=== PATIENT | male | born 1955 | race Caucasian/White ===

== ENCOUNTER 2022-08-14 09:26 | Outpatient (CLI) | payer MEDICARE, OTHER, SELFPAY ==
[2022-08-14 10:35] LABS: Anion Gap 5 mmol/L (8-16); Blood Urea Nitrogen 34 mg/dL (9-20); Calcium 9.1 mg/dL (8.4-10.2); Carbon Dioxide 30 mmol/L (22-30); Chloride 101 mmol/L (98-107); Estimated Glomerular Filt Rate 55; Glucose 117 mg/dL (65-110); Potassium 3.8 mmol/L (3.4-5.0); Sodium 136 mmol/L (137-145)
== END 2022-08-14 09:27 | disposition home or self-care (01) ==
PROVIDERS: Anesthesiology; PCP Nurse Practitioner Family; Visit Provider Urology
DX: Z01.818 Encounter for other preprocedural examination (principal); I10 Essential (primary) hypertension
CPT/HCPCS: 36415; 80048

== ENCOUNTER 2022-08-20 01:38 | Day surgery (SDC) | payer MEDICARE, OTHER, SELFPAY ==
--- NOTE | 2022-08-09 14:36 | PC.NURSE ---
Report to the Outpatient Waiting Room, entrance under the green pavilion located off [facility], at time _0600 on date _08/20/22 . Planned Procedure Time: 729 . Time changes happen often and if your time is changed the preop area will call you the afternoon before. - You and your visitor will be asked to self-screen and do not enter if you have any COVID symptoms. - Only one visitor is requested with a max of two and NO children visitors are allowed at this time. - The patient visitor may be requested to leave or wait in car when not with patient due to distancing restrictions. - A mask is optional within the hospital at this time. Patients may have clear liquids (water, carbonated beverages, clear teas, apple juice) until 3 hours prior to surgery with a maximum of 20 ounces. - No food from midnight until time of surgery - Infants may have breast milk until 4 hours before surgery, infant formula 6 hours prior to surgery. - Children will be allowed to drink immediately following surgery. If applicable, please bring a bottle or sippy cup to assist with drinking. Juice, water, soda, and popsicles are readily available. For infants on formula, please bring formula the day of surgery. Pacifiers are allowed. Take the following medications with a SIP of water the morning of surgery: _AMLODIPINE,HYDRALAZINE,LEVOTHYROXINE DO NOT STOP ANY OF YOUR OTHER PRESCRIPTION MEDICATIONS PRIOR TO SURGERY ?EXCEPT THE FOLLOWING Medications to discontinue per physician NONE Date to take last dose Please no make-up, nail [place], hairspray, perfume, deodorant, or body powder the day of surgery. No jewelry (including any body piercings) or valuables the day of surgery, leave them at home. Please take a shower or bath the night before, or the morning of, surgery with an antibacterial soap. Wear comfortable, loose fitting clothing. Children are encouraged to wear pajamas. - Jewelry must be removed prior to entering the operating room. Rings and piercings that are not removed may be cut off. - The hospital will not accept responsibility for valuables. - Please leave all valuables, including medications, at home the day of surgery. If you are going home after surgery, a licensed stock driver must drive you home. - NO public transportation without another adult if you receive anesthesia. - We recommend that an adult stay with you for 24 hours following discharge. - We also recommend that you do not drive, make important decision, drink alcoholic beverages, or take any drugs that were not prescribed by your health care provider for at least 24 hours after your discharge time. For Pediatric surgeries, we recommend two adults accompany the child home. Follow any additional instructions given to you from your surgeon. If you or anyone in your household have experienced Covid symptoms in the past week, please notify your surgeon or the nurse liaison at the phone number below for possible testing. Telephone instructions given to __PATIENT and asked if any additional questions and then verbalized understanding. Patient advised to call surgeon office or pre surgery nurse liaison [phone] if any additional questions.
[2022-08-09 14:48] VITALS: BMI 29.2
[2022-08-20] VITALS (8 sets, daily range): BP systolic 83–137; BP diastolic 47–72; PULSE 70–86; RESP 12–17; TEMP 36.3–36.4; O2SAT 100
[2022-08-20] MEDS: LACTATED RINGERS 1,000 ML 30 ML IV CONT ×2 (06:30→08:26)
--- NOTE | 2022-08-20 07:12 | P.PNAN_ITS ---
Anes - Initial Pre Proc Eval Procedure: Operation Date: 08/20/22 07:30 Proposed Procedures p Right Hydrocelectomy with Orchiopexy - Alexander Ocasio MD Date/Time: 08/20/22 07:12 Surgeon: Alexander Ocasio MD Pre Op Diagnosis: Right Hydrocele Patient Data Age: 67 Gender: M Height: 1.8 m Weight: 89.5 kg Last Vital Signs Temp 36.3 C L 08/20/22 06:58 Pulse 71 08/20/22 06:58 Resp 16 08/20/22 06:58 BP 120/66 08/20/22 06:58 Pulse Ox 100 08/20/22 06:58 O2 Del Method Room Air 08/20/22 06:58 Allergies Allergy/AdvReac Type Severity Reaction Status Date / Time poison billy extract Allergy Hives / Verified 08/20/22 06:54 Red Face poison oak extract Allergy Hives / Verified 08/20/22 06:54 Red Face Home Medications Medication Instructions Recorded Confirmed Type amlodipine 10 mg tablet 10 mg PO HS 08/09/22 08/20/22 History hydralazine 10 mg tablet 10 mg PO TID 08/09/22 08/20/22 History levothyroxine 50 mcg tablet 50 mcg PO EVERY OTHER DAY 08/09/22 08/20/22 History lisinopril 20 2 tablet PO QAM 08/09/22 08/20/22 History mg-hydrochlorothiazide 12.5 mg tablet Patient hx anesthesia problems: none Family hx anesthesia problems: none Results Review: All pre-operative results and documents have been reviewed as part of the pre- operative evaluation. [facility] Social History Social History Smoking packs per day: 1 Smoking cigarettes per day: 20.0 Years smoked: 10 Smoking pack-years: 10.00 Smoking status: Current every day smoker Tobacco type: cigarettes Alcohol intake: current Drinks per week: 1 Living arrangements: with family Spiritual care concerns: No Anes - Eval Final PreProcedure Day of Procedure 08/20/22 07:12 Patient weight: overweight Heart: regular rate and rhythm Lungs: decreased breath sounds Airway: Mallampati scale class II Neurological: alert and oriented Last oral intake: >/= 8 hours ASA classification: III Emergent: no Anesthetic plan: proceed Anesthesia type and monitoring: general LMA and standard monitoring Results Review: All pre-operative results and documents have been reviewed as part of the pre- operative evaluation. Informed Consent: The patient's anesthetic plan and its attendant risks and benefits were discus sed with the patient/family/POA. Questions were solicited and answers provided to the satisfaction of the patient/family/POA.
[2022-08-20] MEDS: SCOPOLAMINE 1.5 MG PATCH TRANSDERM (07:15)
--- NOTE | 2022-08-20 07:24 | WPDHPUPDATE1 ---
History and Physical Update Update Date/Time: 08/20/22 07:24 History and Physical has been reviewed, including an updated exam of the patient. There are NO changes in the patient's condition. Risks, benefits, and alternatives have been discussed and questions answered. Patient agrees to proceed with procedure. Proceed with right hydrocelectomy and orchiopexy
[2022-08-20] MEDS: ceFAZolin 2 GM/D5W 50 ML 2 GM/50 ML BAG IVPB (07:33)
[2022-08-20] MEDS: LIDOCAINE HCL 1% LOCAL INJ 20 ML VIAL INFILTRATE (07:50)
[2022-08-20] MEDS: NEOMYCIN/POLYMYXIN/BACITRACIN OINTMENT 15 GM TUBE 1 APPLIC TOPICAL (08:01)
--- NOTE | 2022-08-20 08:10 | W.PM.PROC2 ---
Procedure Note - Detailed Date of Procedure 08/20/22 Pre-op Diagnosis Right Hydrocele Post-op Diagnosis Same Procedure Performed Right hydrocelectomy, right orchiopexy Surgeon Alexander Ocasio MD Anesthesia General Description of Procedure Patient was taken to the operative suite correctly identified. Once anesthesia was obtained was prepped and draped usual sterile fashion. A right trans scrotal incision was then made and carried down through the tunica layers. The right hydrocele was brought out into the operative field. The hydrocele was then incised and drained of approximately 150 cc of straw-colored fluid. The excess sac was then excised circumferentially. The edges were fulgurated. The appendix testes was removed. Orchiopexy was then performed in the 3 point fixation using Ethibond. Quarter-inch Patrick drain was placed through a separate stab incision and secured. The tunica was closed using 3-0 chromic in a running fashion. Skin was anesthetized with 1% lidocaine. Skin was closed using 3-0 chromic in a running fashion. Patient tolerated procedure well without complications taken recovery stable condition. Please send a copy of op note to my office. Estimated Blood Loss 5 Drains Yes Packing No Pathology Yes Complications No immediate complications Condition Stable Disposition PACU
--- NOTE | 2022-08-20 08:45 | SUR.PHASEI ---
0845: Simple mask removed.
[2022-08-20] MEDS: oxyCODONE HCL (*CRX) 5 MG TAB IR PO (09:18)
== END 2022-08-20 10:00 | disposition home or self-care (01) ==
PROVIDERS: PCP Nurse Practitioner Family; Visit Provider Urology
PROC: (CPT 55040; principal; 2022-08-20 07:30)
DX: N43.3 Hydrocele, unspecified (principal); F17.210 Nicotine dependence, cigarettes, uncomplicated
CPT/HCPCS: 55040; 54640; 36415; 80048; 88302; A9270; J0690; J1100; J1170; J2250; J2405; J2704; J3010; J7120